=== PATIENT | female | born 2000 | race Hispanic/Latino ===

== ENCOUNTER 2023-09-28 10:50 | Emergency (ER) | payer OTHER ==
[~2023-09-28] VITALS: Ht 172.7 cm; Wt 79.4 kg
[2023-09-28] MEDS ORDERED: IBUP-2077 PO (12:17)
[2023-09-28] MEDS ORDERED: METH4TAB3 PO (12:18)
[2023-09-28] MEDS: KETOROLAC 60 MG VIAL (30MG/ML) IM ONE (12:26)
[2023-09-28 12:28] VITALS: BP 118/79; PULSE 70; RESP 16; O2SAT 100
== END 2023-09-28 12:41 | disposition home or self-care (01) ==
LOC: EDH 10:50
DX: M25.562 Pain in left knee (principal)
CPT/HCPCS: 99283; 73562; 96372; J1885

== ENCOUNTER 2024-02-05 04:53 | Emergency (ER) | payer OTHER ==
[~2024-02-05] VITALS: Ht 172.7 cm; Wt 83.5 kg
[~2024-02-05 04:53] MED LIST: IBUP-2077 PO; METH4TAB3 PO
[2024-02-05 05:31] VITALS: BP 124/72; PULSE 75; RESP 18; O2SAT 98
[2024-02-05] MEDS: IBUPROFEN 600 MG TABLET PO ONE (06:24)
== END 2024-02-05 06:52 | disposition home or self-care (01) ==
LOC: EDH 04:53
DX: M25.562 Pain in left knee (principal)
CPT/HCPCS: 73564